=== PATIENT | female | born 1955 | race Caucasian/White ===

== ENCOUNTER 2020-04-18 15:50 | Emergency (ER) | payer BC ==
[2020-04-18] MEDS ORDERED: ONDANSETRON INJ 4 MG/2 ML VIAL IV ONE (15:59)
[2020-04-18] MEDS ORDERED: MORPHINE SULFATE INJ 10 MG/ML VIAL IV ONE (15:59)
--- NOTE | 2020-04-18 16:02 | ED.PDOC ---
History of Present Illness - General Time Seen by Provider: 04/18/20 15:52 Information Source: patient, RN notes reviewed, Vital Signs reviewed, family, RN/MD Exam Limitations: no limitations - History of Present Illness Initial Comments: Patient is a 64-year-old female who presents the ED with 1 day history of abdominal pain. States she awoke this morning with achy suprapubic pain that has worsened in intensity throughout the day. She has had 2 bowel movements today without relief. Has had nausea, but denies vomiting, fever, dysuria, hematuria, diarrhea or constipation. She denies any previous abdominal surg eries. Review of Systems - Review of Systems Constitutional: Denies: chills, fever EENTM: Denies: throat pain, throat swelling Respiratory: Denies: cough, short of breath Cardiology: Denies: chest pain, syncope Gastrointestinal/Abdominal: States: abdominal pain, nausea. Denies: diarrhea, vomiting Genitourinary: Denies: dysuria, frequency, hematuria Musculoskeletal: Denies: neck pain Skin: States: no symptoms reported Neurological: Denies: headache, paresthesia All other Systems: Reviewed and Negative Family Medical History - Family History Mother Family History: No Known Physical Exam - Physical Exam General Appearance: Alert, Comfortable, No apparent distress Neck: non-tender, full range of motion, supple Respiratory: chest non-tender, lungs clear, normal breath sounds, no respiratory distress Cardiovascular/Chest: normal peripheral pulses, regular rate, rhythm Gastrointestinal/Abdominal: other - Soft, mild tender to palpation in the right lower quadrant and suprapubic area. There is no guarding or rigidity. Back Exam: no CVA tenderness, no vertebral tenderness Extremity: normal range of motion, non-tender, normal inspection Neurologic: no motor/sensory deficits, alert, normal mood/affect Skin Exam: normal color, warm/dry Progress - Progress Progress: 04/18/20 16:03 Differential diagnosis: Appendicitis, biliary colic, colitis, small bowel obstruction, diverticulitis, UTI, kidney stone 04/18/20 17:55 Patient presents with lower abdominal pain. States she has been diagnosed with a UTI twice in the past month by her PCP, once she took Macrobid and symptoms improved and a few days later the symptoms returned and she was placed on Cipro. She has been feeling well until today. CT performed to evaluate for appendicitis versus bowel obstruction versus colitis versus UTI. CT shows signs of right pyelonephritis. Urine is clear, and labs show mild leukocytosis. Will treat with IV Rocephin in ED and start Keflex at home. No sign of acute abdomen at this time. I have asked her to follow-up with her PCP for recheck in 1 to 2 days for continued evaluation. Strict return precautions given. - Results/Orders Results/Orders: IMPRESSION: 1. Findings which may represent right-sided pyelonephritis in the correct clinical setting. Correlate with lab values and urinalysis. 2. Gallstones without inflammatory changes. 04/18/20 15:59 Hold Metformin x 48Hrs [id number] Laboratory Results - last 24 hr 04/18/20 04/18/20 04/18/20 15:55 15:55 17:30 WBC 12.6 H RBC 4.24 Hgb 12.3 Hct 37.7 MCV 88.9 MCH 29.0 MCHC 32.6 L RDW 13.8 Plt Count 277 MPV 9.2 Absolute Neuts (auto) 10.40 H Absolute Lymphs (auto) 1.00 Absolute Monos (auto) 1.00 H Absolute Eos (auto) 0.10 Absolute Basos (auto) 0.10 Neutrophils % 82.8 H Lymphocytes % 7.5 L Monocytes % 7.9 Eosinophils % 0.8 L Basophils % 1.0 Sodium 139 Potassium 3.7 Chloride 106 Carbon Dioxide 26 Anion Gap 10.7 L BUN 17 Creatinine 0.86 BUN/Creatinine Ratio 19.8 Random Glucose 98 Serum Osmolality 279.1 Calcium 9.2 Total Bilirubin 0.7 AST 19 ALT 23 Alkaline Phosphatase 77 Serum Total Protein 7.0 Albumin 4.1 Globulin 2.9 Albumin/Globulin Ratio 1.4 Lipase 37 Urine Color Yellow Urine Appearance Clear Urine pH 5.0 Ur Specific [place] 1.015 Urine Protein Negative Urine Glucose (UA) Negative Urine Ketones Negative Urine Blood Negative Urine Nitrite Negative Urine Bilirubin Negative Urine Urobilinogen 0.2 Ur Leukocyte Esterase Negative Urine RBC 0 Urine WBC 0-1 Ur Epithelial Cells 0-1 Urine Bacteria 0 Patient presents with lower abdominal pain. States she has been diagnosed with a UTI twice in the past month by her PCP, once she took Macrobid and symptoms improved and a few days later the symptoms returned and she was placed on Cipro. She has been feeling well until today. CT performed to evaluate for appendicitis versus bowel obstruction versus colitis versus UTI. CT shows signs of right pyelonephritis. Urine is clear, and labs show mild leukocytosis. Will treat with IV Rocephin in ED and start Keflex at home. No sign of acute abdomen at this time. I have asked her to follow-up with her PCP for recheck in 1 to 2 days for continued evaluation. Strict return precautions given. Departure - Departure Clinical Impression: Pyelonephritis of right kidney Abdominal pain Qualifiers: Abdominal location: lower abdomen, unspecified Qualified Code(s): R10.30 - Lower abdominal pain, unspecified Time of Disposition: 17:56 Disposition: Discharge to Home or Self Care Condition: Good Diet: resume usual diet Activity: increase activity as tolerated Prescriptions: Cephalexin Monohydrate [Keflex] 500 mg PO QID 10 Days #40 cap Home Medications: Ambulatory Orders Cephalexin Monohydrate [Keflex] 500 mg PO QID 10 Days #40 cap 04/18/20 Escitalopram [Lexapro] 10 mg PO DAILY 04/18/20 Nebivolol HCl [Bystolic] 10 mg PO DAILY 04/18/20 Omeprazole 40 mg PO DAILY 04/18/20
[2020-04-18 16:21] VITALS: O2SAT 95
--- NOTE | 2020-04-18 17:29 | CT ---
CT ABDOMEN PELVIS WITH IV CONTRAST HISTORY: Abdominal pain. COMPARISON: None. TECHNIQUE: CT scan of the abdomen and pelvis was performed with IV contrast. This exam was performed according to our departmental dose-optimization program, which includes automated exposure control, adjustment of the mA and/or kV according to patient size and/or use of iterative reconstruction technique. FINDINGS: The lung bases are clear. No pleural or pericardial effusions. There is a small hiatal hernia. Gallstones are seen without inflammatory changes. The liver, spleen, pancreas, adrenal glands, and left kidney are unremarkable. There is a possible striated nephrogram pattern of the right kidney which may be seen in the setting of pyelonephritis. No obstructing urinary stones are seen. No hydronephrosis. There has been a prior hysterectomy. The stomach and duodenum are unremarkable. No small bowel obstruction. The appendix is normal. No evidence of acute diverticulitis. No adenopathy, free fluid, or free air is identified. There are mild degenerative changes of the spine. The aorta and IVC are grossly unremarkable. No body wall hernia is evident. IMPRESSION: 1. Findings which may represent right-sided pyelonephritis in the correct clinical setting. Correlate with lab values and urinalysis. 2. Gallstones without inflammatory changes. Electronically signed by: Nelson Murillo MD 04/18/2020 5:28 PM CDT
[2020-04-18] MEDS ORDERED: cefTRIAXone SODIUM 1 GM in SODIUM CHL 0.9% 50ML MIN-BAG+ 50 ML IVPB ONE (17:57)
[2020-04-18] MEDS ORDERED: NAPROXEN SODIUM 220 MG TAB PO ONE (18:26)
[2020-04-18] MEDS ORDERED: IBUPROFEN 200 MG TAB ONE (18:28)
[2020-04-18] MEDS ORDERED: IBUPROFEN 200 MG TAB PO ONE (18:28)
[2020-04-18 19:18] VITALS: BP 135/75; TEMP 99.8
== END 2020-04-18 19:05 | disposition home or self-care (01) ==
LOC: ER 15:50
DX: N12 Tubulo-interstitial nephritis, not specified as acute or chronic (principal); R10.30 Lower abdominal pain, unspecified; Z87.440 Personal history of urinary (tract) infections
CPT/HCPCS: 36415; 74177; 80053; 81001; 83690; 85025; J0696; J2270; J2405; J7050